=== PATIENT | male | born 1990 | race Caucasian/White ===

== ENCOUNTER 2021-04-17 17:41 | Emergency (ER) | payer MEDICAID ==
[~2021-04-17] VITALS: Ht 180.3 cm; Wt 68.0 kg
[2021-04-17 17:47] VITALS: BP_SYST 124
[2021-04-17] MEDS ORDERED: LIDOCAINE 2%, 20 ML MDV INJ ONE (19:15)
[2021-04-17] MEDS ORDERED: TRIAMCINOLONE ACETONIDE 40 MG/ML IM ONE (19:15)
[2021-04-17 21:18] VITALS: BP_SYST 119
== END 2021-04-17 21:18 | disposition home or self-care (01) ==
LOC: SED 17:41
DX: M54.6 Pain in thoracic spine (principal); M25.512 Pain in left shoulder; F12.90 Cannabis use, unspecified, uncomplicated; F17.210 Nicotine dependence, cigarettes, uncomplicated
CPT/HCPCS: 20553; 93005; 96372; 99284; J2001; J3301